=== PATIENT | male | born 1990 | race Caucasian/White ===

== ENCOUNTER 2024-05-31 12:11 | Emergency (ER) | payer OTHER, SELFPAY ==
[2024-05-31 12:16] VITALS: BP 160/86
[2024-05-31 13:14] VITALS: BMI 31.1
[2024-05-31] MEDS: NSS 500 IV (14:17)
[2024-05-31] MEDS: ZOFRAN 4 MG IV (14:17)
[2024-05-31] MEDS: DILAUDID 1 MG IV (14:17)
[2024-05-31 14:22] VITALS: BP 154/85
[2024-05-31] MEDS: ATIVAN 1 MG IV ×2 (15:09→15:31)
--- NOTE | 2024-05-31 15:25 | ED.GENMED ---
History of Present Illness
General
Chief Complaint: Anal/Rectal Problem
Source: patient
Exam Limitations: none
Time Seen by Provider: 05/31/24 12:49
Nursing documentation reviewed up to this point in time: agreed with
History of Present Illness
History of Present Illness:
Patient is a 34-year-old male in good health who presents to the emergency department from urgent care after being diagnosed with a perirectal abscess. Patient noticed pain has been increasing for the past 4 days. Patient denies fever or chills.
Patient denies painful bowel movements. Patient denies any previous history of similar episodes. Patient denies any abdominal pain.
Past History
Past History
ED Past Medical History: None
ED Past Surgical History: Orthopedic
Social History
Tobacco: Non-smoker
Review of Systems
Review of Systems
All Other Systems: Not applicable
Phy Exam
Physical Exam
Physical Exam:
Physical Exam
General: moderate distress, alert and appropriate, well nourished, well hydrated
HENT: Normocephalic, supple
Eyes: Clear sclera, conjuctiva without injection
Heart: Regular rhythm and rate. No S3, S4. No murmur.
Lungs: No respiratory distress, no stridor, lung sounds clear and equal bilaterally
Abdomen: Soft, nontender, BS good. Perirectal exam reveals a fluctuant tender erythematous swollen area in at 3:00
Neuro: Alert and oriented x 3, CN II - XII intact, no motor focality, no cerebellar dysfunction
Skin: no rash
Psychiatric: well kept. interactive and cooperative
Extremities: No edema, cyanosis, tenderness, Good and equal peripheral pulses.
Scores
Heart Failure Risk
Heart Failure Risk Score: Not Applicable
Heart Score for Chest Pain Patients
STEMI patient?: Not applicable
Withdrawal Assessment of Alcohol
Withdrawal Assessment Completed?: Not applicable
Course
Orders/Labs/Results
Orders:
Orders
05/31/24 13:46
0.9% Sodium Chloride 500 ml [Nss] 500 ml IV BOLUS
HYDROmorphone [Dilaudid] 1 mg IV NOW STA
Ondansetron Injectable [Zofran] 4 mg IV NOW STA
05/31/24 15:05
Lorazepam [Ativan] 1 mg IV NOW STA
Vital Signs
Initial and Last Documented VS:
Initial Vital Signs
Temp Pulse Resp BP Pulse Ox
99.7 F 103 16 160/86 98
05/31/24 12:16 05/31/24 12:16 05/31/24 12:16 05/31/24 12:16 05/31/24 12:16
Last Documented Vital Signs
Temp Pulse Resp BP Pulse Ox
99.7 F 85 18 154/85 95
05/31/24 12:16 05/31/24 14:22 05/31/24 14:22 05/31/24 14:22 05/31/24 14:22
Procedures
Incision/Drainage/Joint Aspiration
Right Lateral Buttock:
Anethesia: 1% Lidocaine with Epi
Preparation: cleaned with Betadine
Type of procedure: incise and drain
Nature of site: abscess
Description of abscess: greater than 3cm
Loculations broken up: Yes
How much fluid was obtained?: large amount
Fluid description: purulent
Treatment: left open for drainage and packed with gauze
*Radiology
Radiology exam reviewed: other (na)
*Pulse Oximetry
Patient hypoxic: no
*EKG
Interpreted by ED Provider?: NA
*[employer] Interpretation
Rate: [employer]- N/A
*Critical Care Note
Total Time (30-74mins, 75-104mins- exclusive of procedures): Not Applicable
ED Attending Note
-
Portions of this chart may have been created with voice recognition software.� Occasional wrong word or��sound alike� substitutions may have occurred due to the inherent limitations of voice recognition software.
Discharge Plan
Departure
Patient Disposition: Home (Routine Discharge)
Date of Disposition: 05/31/24
Time of Disposition: 15:29
Patient with high blood pressure during this ER visit?: Yes
Condition: Good
Covid-19: Not Applicable
Discharge Problem:
Abscess, perirectal
Instructions: Abscess Incision and Drainage (DC), How to Do a Sitz Bath, BLOOD PRESSURE
Prescriptions:
New
amoxicillin-pot clavulanate 875-125 mg tablet
1 tab PO BID Qty: 14 0RF
oxycodone 5 mg tablet
5 mg PO Q4H PRN (Reason: Pain) Qty: 10 0RF
Referrals:
Jimmy Braun MD [Active] - Call in 1-3 days for appt
UNKNOWN - PT DOES,NOT KNOW [Family Provider] -
Activity Restrictions/Additional Instructions:
Use stool softener like Metamucil, Colace or the equivalent. No heavy lifting or straining for 5 days.
Interventions
Interventions:
*Risk Screen - Suicide Last Done: 05/31/24 12:16
*General Assessment Last Done: 05/31/24 12:16
*Neglect/Abuse Screening Last Done: 05/31/24 12:16
*ED COVID-19 Vaccine History Last Done: 05/31/24 13:15
ED-Skin Assessment Last Done: 05/31/24 13:30
Discharge Date and Time
Print Language: ITALIAN
== END 2024-05-31 15:48 | disposition home or self-care (01) ==
LOC: EMR 12:11
PROVIDERS: EMERGENCY PHYSICIAN Emergency Medicine
DX: K61.1 Rectal abscess (principal)
CPT/HCPCS: 46040; 96374; 96375; 96376; 99284